=== PATIENT | female | born 1985 | race Caucasian/White ===

== ENCOUNTER 2018-05-19 23:00 | Emergency (ER) | payer OTHER, SELFPAY ==
[~2018-05-19] VITALS: Ht 160 cm; Wt 63.6 kg
[~2018-05-19 23:00] MED LIST: NOCURR
[2018-05-20 03:38] VITALS: BP 115/69
== END 2018-05-20 06:25 | disposition home or self-care (01) ==
LOC: EMS 23:01
DX: M25.571 Pain in right ankle and joints of right foot (principal); F20.9 Schizophrenia, unspecified; F17.200 Nicotine dependence, unspecified, uncomplicated; W19.XXXA Unspecified fall, initial encounter; Y93.89 Activity, other specified; Y92.89 Other specified places as the place of occurrence of the external cause; Y99.8 Other external cause status

== ENCOUNTER 2018-05-20 21:43 | Emergency (ER) | payer OTHER ==
[~2018-05-20] VITALS: Ht 160 cm; Wt 63.6 kg
[2018-05-20 23:15] VITALS: BP 100/64
[2018-05-20 23:50] LABS: AMPHET/METH SCREEN,URINE NEGATIVE (NEGATIVE); BARBITURATE SCREEN, URINE NEGATIVE (NEGATIVE); BENZODIAZEPINES SCREEN,URINE NEGATIVE (NEGATIVE); CANNABINOID SCREEN,URINE NEGATIVE (NEGATIVE); COCAINE SCREEN,URINE NEGATIVE (NEGATIVE); METHADONE SCREEN, URINE NEGATIVE (NEGATIVE); OPIATE SCREEN,URINE NEGATIVE (NEGATIVE); PHENCYCLIDINE SCREEN,URINE NEGATIVE (NEGATIVE)
[2018-05-20 23:51] LABS: EOSINOPHILS % (AUTO) 1.2 % (1.0-6.0); HEMATOCRIT 34.1 % (36-46); HEMOGLOBIN 11.4 g/dL (12.0-16.0); LYMPHOCYTES # (AUTO) 2.4 K/uL (1.0-4.8); LYMPHOCYTES % (AUTO) 31.3 % (22.0-44.0); MEAN CORPUSCULAR HEMOGLOBIN 29.9 pg (26.0-34.0); MEAN CORPUSCULAR HGB CONC 33.3 G/dL (31.0-37.0); MEAN CORPUSCULAR VOLUME 90 fL (80-100); MONOCYTES # (AUTO) 0.6 K/uL (0.1-1.0); MONOCYTES % (AUTO) 8.2 % (2.0-9.0); NEUTROPHILS # (AUTO) 4.5 K/uL (1.8-7.7); NEUTROPHILS % (AUTO) 58.3 % (40.0-70.0); PLATELET COUNT (AUTO) 176 K/uL (150-450); RED CELL DISTRIBUTION WIDTH 15.3 % (11.5-14.5)
[2018-05-21 00:02] LABS: ANION GAP 11 mmol/L (8-16); CALCIUM, TOTAL 8.4 mg/dL (8.8-10.5); CARBON DIOXIDE 25 mmol/L (22-29); CHLORIDE 105 mmol/L (98-107); GLOMERULAR FILTR. RATE CALC > 60 mL/min (>60); GLUCOSE,RANDOM 107 mg/dL (70-110); POTASSIUM 3.8 mmol/L (3.5-5.1); SODIUM SERUM 141 mmol/L (136-145); UREA NITROGEN, BLOOD 9 mg/dL (7-18)
[2018-05-21 00:09] LABS: ALANINE AMINOTRANSFERASE 44 U/L (12-78); ALBUMIN 3.7 g/dL (3.4-5.0); ALKALINE PHOSPHATASE 106 U/L (46-116); ASPARTATE AMINOTRANSFERASE 43 U/L (15-37); BILIRUBIN,TOTAL 0.2 mg/dL (0.1-1.0); TOTAL PROTEIN, SERUM 8.1 g/dL (6.4-8.2)
== END 2018-05-21 06:25 | disposition home or self-care (01) ==
LOC: EMS 21:44
DX: F20.9 Schizophrenia, unspecified (principal); F10.129 Alcohol abuse with intoxication, unspecified; Y90.8 Blood alcohol level of 240 mg/100 ml or more
CPT/HCPCS: 36415; 80053; 80307; 85025; 99285; G0480

== ENCOUNTER 2018-06-12 19:22 | Inpatient (IN) | payer MEDICAID, OTHER ==
[~2018-06-12] VITALS: Ht 160 cm; Wt 78.5 kg
[~2018-06-12 19:22] MED LIST changes: +ALBU8HFA IH; +ASPI-891 PO; +BENZ1LOZ68 PO; +CLON-570 PO; +DSS100 PO; +IBUP-2071 PO; +LOPE2 PO; +LORA2TAB2 PO; +MULT-1239 PO; +OLAN5TAB2 PO; +OMEG-12 PO; +QUET100T PO; +SERT100T12 PO; +VITAD1000 PO; +ZOLP10TA7 PO
[2018-06-13] VITALS (13 sets, daily range): BP systolic 104–136; BP diastolic 73–89
[2018-06-13] MEDS ORDERED: ZOLPIDEM TARTRATE 10 MG TABLET PO PRN (01:45)
[2018-06-13] MEDS ORDERED: LOPERAMIDE HCL 2 MG CAPSULE PO PRN (05:45)
[2018-06-13] MEDS ORDERED: PETROLATUM,WHITE 71 GM JELLY TP PRN (05:45)
[2018-06-13] MEDS ORDERED: ONDANSETRON HCL 4 MG TABLET PO PRN (05:45)
[2018-06-13] MEDS ORDERED: MAGNESIUM HYDROXIDE SUSPENSION 30 ML UDCUP PO PRN (05:45)
[2018-06-13] MEDS ORDERED: CloNIDine HCL 0.1 MG TABLET PO PRN (05:45)
[2018-06-13] MEDS ORDERED: MAG HYDROX/AL HYDROX/SIMETH ES 30 ML SUSPENSION UDCUP PO PRN (05:45)
[2018-06-13] MEDS ORDERED: GuaiFENesin/D-METHORPHAN [SUGAR-FREE] 200-20MG/10 ML SYRUP UDCUP PO PRN (05:45)
[2018-06-13] MEDS ORDERED: IBUPROFEN 400 MG TABLET PO PRN (05:45)
[2018-06-13] MEDS ORDERED: ALBUTEROL SULFATE HFA 90 MCG/PUFF 8 GM INHALER IH PRN (05:45)
[2018-06-13] MEDS ORDERED: DOCUSATE SODIUM 100 MG CAPSULE PO PRN (05:45)
[2018-06-13] MEDS ORDERED: ACETAMINOPHEN 325 MG TABLET PO PRN (05:45)
[2018-06-13] MEDS ORDERED: NICOTINE 14 MG/24 HOUR PATCH TD PRN (05:45)
[2018-06-13] MEDS: LORazepam 2 MG TABLET PO PRN ×2 (12:20→16:43)
[2018-06-13] MEDS: QUEtiapine FUMARATE 100 MG TABLET PO PRN (16:43)
[2018-06-13] MEDS: OLANZapine 5 MG TABLET PO SCH (16:44)
[2018-06-14] VITALS (9 sets, daily range): BP systolic 94–126; BP diastolic 61–82
[2018-06-14 07:47] LABS: BASOPHILS % (AUTO) 0.3 % (0.0-2.0); EOSINOPHILS % (AUTO) 1.1 % (1.0-6.0); HEMATOCRIT 34.8 % (36-46); HEMOGLOBIN 11.5 g/dL (12.0-16.0); LYMPHOCYTES # (AUTO) 1.4 K/uL (1.0-4.8); MEAN CORPUSCULAR HEMOGLOBIN 30.1 pg (26.0-34.0); MEAN CORPUSCULAR VOLUME 91 fL (80-100); MONOCYTES # (AUTO) 0.5 K/uL (0.1-1.0); MONOCYTES % (AUTO) 8.2 % (2.0-9.0); NEUTROPHILS # (AUTO) 3.9 K/uL (1.8-7.7); NEUTROPHILS % (AUTO) 66.4 % (40.0-70.0); PLATELET COUNT (AUTO) 129 K/uL (150-450); RED BLOOD CELL COUNT(AUTO) 3.81 MIL/uL (4.00-5.20); RED CELL DISTRIBUTION WIDTH 17.4 % (11.5-14.5)
[2018-06-14 08:01] LABS: HEMOGLOBIN A1C 5.2 % (4.5-6.2)
[2018-06-14 08:48] LABS: ALANINE AMINOTRANSFERASE 16 U/L (12-78); ALBUMIN 3.5 g/dL (3.4-5.0); ALKALINE PHOSPHATASE 70 U/L (46-116); ANION GAP 11 mmol/L (8-16); ASPARTATE AMINOTRANSFERASE 19 U/L (15-37); BILIRUBIN,TOTAL 0.5 mg/dL (0.1-1.0); CALCIUM, TOTAL 9.2 mg/dL (8.8-10.5); CARBON DIOXIDE 25 mmol/L (22-29); CHLORIDE 104 mmol/L (98-107); CHOL/HDL RATIO 2.3 (3.9-5.7); CHOLESTEROL 149 mg/dL (131-200); GLOMERULAR FILTR. RATE CALC > 60 mL/min (>60); GLUCOSE,RANDOM 93 mg/dL (70-110); HCG,QUANTITATIVE < 1 mIU/mL (0-6); HDL CHOLESTEROL 64 mg/dL (40-60); LDL CHOL (CALC.) 74 mg/dL (0-130); SODIUM SERUM 140 mmol/L (136-145); THYROID STIMULATING HORMONE 1.16 uIU/mL (0.36-3.74); TOTAL PROTEIN, SERUM 7.2 g/dL (6.4-8.2); TRIGLYCERIDES 57 mg/dL (15-150); UREA NITROGEN, BLOOD 11 mg/dL (7-18)
[2018-06-14] MEDS: SERTRALINE HCL 100 MG TABLET PO SCH (09:15)
[2018-06-14] MEDS: OLANZapine 5 MG TABLET PO SCH ×2 (09:15→16:32)
[2018-06-14] MEDS: LORazepam 2 MG TABLET PO PRN (16:32)
[2018-06-14] MEDS: QUEtiapine FUMARATE 100 MG TABLET PO PRN (16:32)
[2018-06-15 03:14] VITALS: BP 113/67
[2018-06-15 03:20] VITALS: BP 113/67
[2018-06-15 07:04] VITALS: BP 109/65
[2018-06-15] MEDS: OLANZapine 5 MG TABLET PO SCH (08:56)
[2018-06-15] MEDS: SERTRALINE HCL 100 MG TABLET PO SCH (08:56)
[2018-06-15 11:25] VITALS: BP 119/74
[2018-06-15 11:26] VITALS: BP 119/74
== END 2018-06-15 13:30 | disposition home or self-care (01) | DRG 750 ==
LOC: B3A 06-13 01:30
PROVIDERS: ADMIT Psychiatry & Neurology Psychiatry; ATTEND Psychiatry & Neurology Psychiatry
DX: F25.9 Schizoaffective disorder, unspecified (principal); R45.851 Suicidal ideations; Z59.0 Homelessness; F10.10 Alcohol abuse, uncomplicated; D64.9 Anemia, unspecified; F17.200 Nicotine dependence, unspecified, uncomplicated; F32.9 Major depressive disorder, single episode, unspecified; G47.00 Insomnia, unspecified; I10 Essential (primary) hypertension; Y90.8 Blood alcohol level of 240 mg/100 ml or more; Z86.73 Personal history of transient ischemic attack (TIA), and cerebral infarction without residual deficits; Z81.8 Family history of other mental and behavioral disorders
CPT/HCPCS: 83036; 84443; 93970

== ENCOUNTER 2018-07-03 09:24 | Inpatient (IN) | payer MEDICAID, OTHER ==
[~2018-07-03] VITALS: Ht 160 cm; Wt 80.7 kg
[~2018-07-03 09:24] MED LIST changes: -ALBU8HFA IH; -ASPI-891 PO; -BENZ1LOZ68 PO; -CLON-570 PO; -DSS100 PO; -IBUP-2071 PO; -LOPE2 PO; -LORA2TAB2 PO; -MULT-1239 PO; -NOCURR; -OMEG-12 PO; -QUET100T PO; -VITAD1000 PO; -ZOLP10TA7 PO
[2018-07-03] MEDS ORDERED: HALOPERIDOL 5 MG TABLET PO PRN (11:00)
[2018-07-03 12:00] LABS: BASOPHILS % (AUTO) 0.6 % (0.0-2.0); EOSINOPHILS % (AUTO) 0.9 % (1.0-6.0); HEMATOCRIT 36.8 % (36-46); LYMPHOCYTES # (AUTO) 1.8 K/uL (1.0-4.8); LYMPHOCYTES % (AUTO) 42.1 % (22.0-44.0); MEAN CORPUSCULAR HEMOGLOBIN 30.2 pg (26.0-34.0); MEAN CORPUSCULAR HGB CONC 32.7 G/dL (31.0-37.0); MEAN CORPUSCULAR VOLUME 92 fL (80-100); MONOCYTES # (AUTO) 0.3 K/uL (0.1-1.0); MONOCYTES % (AUTO) 6.4 % (2.0-9.0); NEUTROPHILS # (AUTO) 2.2 K/uL (1.8-7.7); PLATELET COUNT (AUTO) 153 K/uL (150-450); RED BLOOD CELL COUNT(AUTO) 3.98 MIL/uL (4.00-5.20); RED CELL DISTRIBUTION WIDTH 19.7 % (11.5-14.5)
[2018-07-03 12:14] LABS: ANION GAP 13 mmol/L (8-16); CALCIUM, TOTAL 8.4 mg/dL (8.8-10.5); CARBON DIOXIDE 23 mmol/L (22-29); CHLORIDE 106 mmol/L (98-107); CREATININE 0.46 mg/dL (0.60-1.30); GLOMERULAR FILTR. RATE CALC > 60 mL/min (>60); GLUCOSE,RANDOM 107 mg/dL (70-110); POTASSIUM 4.1 mmol/L (3.5-5.1); SODIUM SERUM 142 mmol/L (136-145); UREA NITROGEN, BLOOD 9 mg/dL (7-18)
[2018-07-03 12:26] LABS: ALANINE AMINOTRANSFERASE 20 U/L (12-78); ALBUMIN 3.6 g/dL (3.4-5.0); ALKALINE PHOSPHATASE 102 U/L (46-116); ASPARTATE AMINOTRANSFERASE 27 U/L (15-37); BILIRUBIN,TOTAL 0.1 mg/dL (0.1-1.0); HCG,QUANTITATIVE < 1 mIU/mL (0-6); TOTAL PROTEIN, SERUM 7.5 g/dL (6.4-8.2)
[2018-07-03 12:57] LABS: AMPHET/METH SCREEN,URINE NEGATIVE (NEGATIVE); BARBITURATE SCREEN, URINE NEGATIVE (NEGATIVE); BENZODIAZEPINES SCREEN,URINE NEGATIVE (NEGATIVE); CANNABINOID SCREEN,URINE NEGATIVE (NEGATIVE); COCAINE SCREEN,URINE NEGATIVE (NEGATIVE); METHADONE SCREEN, URINE NEGATIVE (NEGATIVE); OPIATE SCREEN,URINE NEGATIVE (NEGATIVE)
[2018-07-03 12:58] LABS: PHENCYCLIDINE SCREEN,URINE NEGATIVE (NEGATIVE)
[2018-07-03 13:16] LABS: APPEARANCE,URINE CLEAR (CLEAR); BILIRUBIN,URINE NEGATIVE (NEGATIVE); GLUCOSE, URINE (UA) NEGATIVE (NEGATIVE); KETONES,URINE NEGATIVE (NEGATIVE); LEUKOCYTE ESTERASE ,URINE TRACE (NEGATIVE); NITRATE,URINE NEGATIVE (NEGATIVE); OCCULT BLOOD,URINE NEGATIVE (NEGATIVE); PROTEIN,URINE NEGATIVE (NEGATIVE); UROBILINOGEN,URINE 0.2 mg/dL (<=1.0)
[2018-07-03 13:32] LABS: BACTERIA,URINE Few /HPF (None Seen); RBC,URINE None Seen /HPF (0-2); WBC,URINE 0-2 /HPF (0-5)
[2018-07-03 13:33] LABS: SQUAMOUS EPITHELIAL CELL,UR Few /LPF (None Seen)
[2018-07-03 19:30] VITALS: BP 101/65
[2018-07-03] MEDS ORDERED: ALBUTEROL SULFATE HFA 90 MCG/PUFF 8 GM INHALER IH PRN (20:45)
[2018-07-03] MEDS ORDERED: DOCUSATE SODIUM 100 MG CAPSULE PO PRN (20:45)
[2018-07-03] MEDS ORDERED: MAG HYDROX/AL HYDROX/SIMETH ES 30 ML SUSPENSION UDCUP PO PRN (20:45)
[2018-07-03] MEDS ORDERED: LOPERAMIDE HCL 2 MG CAPSULE PO PRN (20:45)
[2018-07-03] MEDS ORDERED: ACETAMINOPHEN 325 MG TABLET PO PRN (20:45)
[2018-07-03] MEDS ORDERED: ONDANSETRON HCL 4 MG TABLET PO PRN (20:45)
[2018-07-03] MEDS ORDERED: CloNIDine HCL 0.1 MG TABLET PO PRN (20:45)
[2018-07-03] MEDS ORDERED: MAGNESIUM HYDROXIDE SUSPENSION 30 ML UDCUP PO PRN (20:45)
[2018-07-03] MEDS ORDERED: PETROLATUM,WHITE 28 GM JELLY TP PRN (20:45)
[2018-07-03] MEDS ORDERED: GuaiFENesin/D-METHORPHAN [SUGAR-FREE] 200-20MG/10 ML SYRUP UDCUP PO PRN (20:45)
[2018-07-03] MEDS ORDERED: NICOTINE 14 MG/24 HOUR PATCH TD PRN (20:45)
[2018-07-03 23:00] VITALS: BP 100/68
[2018-07-04] VITALS (10 sets, daily range): BP systolic 100–124; BP diastolic 66–87
[2018-07-04 08:23] LABS: BASOPHILS % (AUTO) 0.3 % (0.0-2.0); EOSINOPHILS % (AUTO) 0.9 % (1.0-6.0); HEMATOCRIT 36.6 % (36-46); HEMOGLOBIN 11.9 g/dL (12.0-16.0); LYMPHOCYTES # (AUTO) 1.3 K/uL (1.0-4.8); LYMPHOCYTES % (AUTO) 27.6 % (22.0-44.0); MEAN CORPUSCULAR HEMOGLOBIN 30.4 pg (26.0-34.0); MEAN CORPUSCULAR HGB CONC 32.6 G/dL (31.0-37.0); MEAN CORPUSCULAR VOLUME 93 fL (80-100); MONOCYTES # (AUTO) 0.5 K/uL (0.1-1.0); MONOCYTES % (AUTO) 9.6 % (2.0-9.0); NEUTROPHILS % (AUTO) 61.6 % (40.0-70.0); PLATELET COUNT (AUTO) 137 K/uL (150-450); RED BLOOD CELL COUNT(AUTO) 3.93 MIL/uL (4.00-5.20); RED CELL DISTRIBUTION WIDTH 19.4 % (11.5-14.5)
[2018-07-04] MEDS: LORazepam 2 MG TABLET PO PRN (08:28)
[2018-07-04 08:56] LABS: HEMOGLOBIN A1C 5.3 % (4.5-6.2)
[2018-07-04 09:02] LABS: ALANINE AMINOTRANSFERASE 17 U/L (12-78); ALBUMIN 3.5 g/dL (3.4-5.0); ALKALINE PHOSPHATASE 88 U/L (46-116); ANION GAP 8 mmol/L (8-16); ASPARTATE AMINOTRANSFERASE 21 U/L (15-37); BILIRUBIN,TOTAL 0.6 mg/dL (0.1-1.0); CALCIUM, TOTAL 9.2 mg/dL (8.8-10.5); CARBON DIOXIDE 27 mmol/L (22-29); CHLORIDE 102 mmol/L (98-107); CHOL/HDL RATIO 2.6 (3.9-5.7); CHOLESTEROL 180 mg/dL (131-200); CREATININE 0.49 mg/dL (0.60-1.30); GLOMERULAR FILTR. RATE CALC > 60 mL/min (>60); GLUCOSE,RANDOM 91 mg/dL (70-110); HDL CHOLESTEROL 68 mg/dL (40-60); LDL CHOL (CALC.) 89 mg/dL (0-130); POTASSIUM 3.9 mmol/L (3.5-5.1); SODIUM SERUM 137 mmol/L (136-145); THYROID STIMULATING HORMONE 1.51 uIU/mL (0.36-3.74); TOTAL PROTEIN, SERUM 7.2 g/dL (6.4-8.2); TRIGLYCERIDES 114 mg/dL (15-150); UREA NITROGEN, BLOOD 11 mg/dL (7-18)
[2018-07-04] MEDS: SERTRALINE HCL 100 MG TABLET PO SCH (13:39)
[2018-07-04] MEDS: FERROUS SULFATE 325 MG EC TABLET PO SCH (16:59)
[2018-07-04] MEDS: OLANZapine 5 MG TABLET PO SCH (16:59)
[2018-07-05 03:00] VITALS: BP 113/73
[2018-07-05] MEDS: FERROUS SULFATE 325 MG EC TABLET PO SCH ×2 (07:12→17:28)
[2018-07-05 08:36] VITALS: BP 118/90
[2018-07-05] MEDS: SERTRALINE HCL 100 MG TABLET PO SCH (09:22)
[2018-07-05] MEDS: OLANZapine 5 MG TABLET PO SCH ×2 (09:22→17:28)
[2018-07-05] MEDS: LORazepam 2 MG TABLET PO PRN (09:23)
[2018-07-05 16:47] VITALS: BP 121/70
[2018-07-06 01:08] VITALS: BP 112/77
[2018-07-06] MEDS: FERROUS SULFATE 325 MG EC TABLET PO SCH ×2 (07:02→17:09)
[2018-07-06 08:00] VITALS: BP 107/78
[2018-07-06] MEDS: OLANZapine 5 MG TABLET PO SCH ×2 (09:15→17:09)
[2018-07-06] MEDS: SERTRALINE HCL 100 MG TABLET PO SCH (09:15)
[2018-07-06] MEDS: LORazepam 2 MG TABLET PO PRN (09:15)
[2018-07-06 16:14] VITALS: BP 105/64
[2018-07-06] MEDS: ZOLPIDEM TARTRATE 10 MG TABLET PO PRN (20:44)
[2018-07-07 01:59] VITALS: BP 118/62
[2018-07-07] MEDS: FERROUS SULFATE 325 MG EC TABLET PO SCH ×2 (06:59→16:51)
[2018-07-07 08:25] VITALS: BP 118/77
[2018-07-07] MEDS: SERTRALINE HCL 100 MG TABLET PO SCH (08:53)
[2018-07-07] MEDS: OLANZapine 5 MG TABLET PO SCH ×2 (08:53→16:51)
[2018-07-07 17:15] VITALS: BP 118/91
[2018-07-08 00:15] VITALS: BP 120/81
[2018-07-08] MEDS: FERROUS SULFATE 325 MG EC TABLET PO SCH ×2 (06:57→16:37)
[2018-07-08 08:39] VITALS: BP 101/64
[2018-07-08] MEDS: SERTRALINE HCL 100 MG TABLET PO SCH (09:13)
[2018-07-08] MEDS: OLANZapine 5 MG TABLET PO SCH (09:13)
[2018-07-08 16:20] VITALS: BP 109/84
[2018-07-08] MEDS: OLANZapine 10 MG TABLET PO SCH (16:37)
[2018-07-09 00:32] VITALS: BP 112/70
[2018-07-09] MEDS: FERROUS SULFATE 325 MG EC TABLET PO SCH ×2 (06:37→16:49)
[2018-07-09 08:29] VITALS: BP 115/79
[2018-07-09] MEDS: OLANZapine 10 MG TABLET PO SCH ×2 (09:00→16:49)
[2018-07-09] MEDS: SERTRALINE HCL 100 MG TABLET PO SCH (09:01)
[2018-07-09 16:19] VITALS: BP 109/72
[2018-07-09] MEDS: LORazepam 2 MG TABLET PO PRN (21:32)
[2018-07-10 05:17] VITALS: BP 106/69
[2018-07-10] MEDS: FERROUS SULFATE 325 MG EC TABLET PO SCH ×2 (07:18→16:37)
[2018-07-10 08:21] VITALS: BP 102/71
[2018-07-10] MEDS: OLANZapine 10 MG TABLET PO SCH ×2 (08:48→16:37)
[2018-07-10] MEDS: SERTRALINE HCL 100 MG TABLET PO SCH (08:48)
[2018-07-10] MEDS: LORazepam 2 MG TABLET PO PRN (08:48)
[2018-07-10 16:27] VITALS: BP 103/70
[2018-07-11 00:24] VITALS: BP 100/73
[2018-07-11] MEDS: FERROUS SULFATE 325 MG EC TABLET PO SCH ×2 (06:54→17:24)
[2018-07-11 08:16] VITALS: BP 103/79
[2018-07-11] MEDS: SERTRALINE HCL 100 MG TABLET PO SCH (09:00)
[2018-07-11] MEDS: OLANZapine 10 MG TABLET PO SCH ×2 (09:00→17:24)
[2018-07-11 16:36] VITALS: BP 103/71
[2018-07-11 18:44] VITALS: BP 103/71
[2018-07-11] MEDS: IBUPROFEN 400 MG TABLET PO PRN (18:48)
[2018-07-12 05:42] VITALS: BP 109/65
[2018-07-12 06:25] VITALS: BP 120/81
[2018-07-12] MEDS: IBUPROFEN 400 MG TABLET PO PRN (06:30)
[2018-07-12] MEDS: FERROUS SULFATE 325 MG EC TABLET PO SCH ×2 (07:05→16:23)
[2018-07-12 08:27] VITALS: BP 119/84
[2018-07-12] MEDS: OLANZapine 10 MG TABLET PO SCH ×2 (08:35→16:23)
[2018-07-12] MEDS: SERTRALINE HCL 100 MG TABLET PO SCH (08:35)
[2018-07-12] MEDS: LORazepam 2 MG TABLET PO PRN (09:05)
[2018-07-12 19:40] VITALS: BP 108/73
[2018-07-13] MEDS: ZOLPIDEM TARTRATE 10 MG TABLET PO PRN (00:51)
[2018-07-13 00:55] VITALS: BP 110/68
[2018-07-13] MEDS: FERROUS SULFATE 325 MG EC TABLET PO SCH ×2 (07:09→16:20)
[2018-07-13 08:42] VITALS: BP 100/66
[2018-07-13] MEDS: SERTRALINE HCL 100 MG TABLET PO SCH (09:47)
[2018-07-13] MEDS: OLANZapine 10 MG TABLET PO SCH ×2 (09:47→16:20)
[2018-07-13] MEDS: IBUPROFEN 400 MG TABLET PO PRN (14:43)
[2018-07-13 16:35] VITALS: BP 106/77
[2018-07-13] MEDS: LORazepam 2 MG TABLET PO PRN (17:45)
[2018-07-14 06:12] VITALS: BP 111/69
[2018-07-14] MEDS: FERROUS SULFATE 325 MG EC TABLET PO SCH (07:09)
[2018-07-14 08:33] VITALS: BP 126/78
[2018-07-14] MEDS: SERTRALINE HCL 100 MG TABLET PO SCH (09:12)
[2018-07-14] MEDS: OLANZapine 10 MG TABLET PO SCH (09:12)
[2018-07-14] MEDS ORDERED: FERR-89 PO (09:46)
[2018-07-14] MEDS ORDERED: OLAN10TA3 PO (09:46)
== END 2018-07-14 13:25 | disposition home or self-care (01) | DRG 750 ==
LOC: EMS 09:25 → B2S 15:23
PROVIDERS: ADMIT Psychiatry & Neurology Psychiatry; ATTEND Psychiatry & Neurology Psychiatry
DX: F25.0 Schizoaffective disorder, bipolar type (principal); R45.851 Suicidal ideations; Z59.0 Homelessness; F25.1 Schizoaffective disorder, depressive type; F41.9 Anxiety disorder, unspecified; I10 Essential (primary) hypertension; F17.210 Nicotine dependence, cigarettes, uncomplicated; D64.9 Anemia, unspecified; F10.10 Alcohol abuse, uncomplicated; F12.90 Cannabis use, unspecified, uncomplicated; F32.9 Major depressive disorder, single episode, unspecified; Z91.5 Personal history of self-harm; Z71.6 Tobacco abuse counseling; Z71.41 Alcohol abuse counseling and surveillance of alcoholic
CPT/HCPCS: 83036; 84443; 87081; G0480

== ENCOUNTER 2018-08-14 13:49 | Inpatient (IN) | payer MEDICAID, OTHER ==
[~2018-08-14] VITALS: Ht 160 cm; Wt 85.7 kg
[~2018-08-14 13:49] MED LIST changes: +FERR-89 PO; +OLAN10TA3 PO; -OLAN5TAB2 PO
[2018-08-14 15:35] LABS: AMPHET/METH SCREEN,URINE NEGATIVE (NEGATIVE); BARBITURATE SCREEN, URINE NEGATIVE (NEGATIVE); BENZODIAZEPINES SCREEN,URINE POSITIVE (NEGATIVE); CANNABINOID SCREEN,URINE NEGATIVE (NEGATIVE); COCAINE SCREEN,URINE NEGATIVE (NEGATIVE); METHADONE SCREEN, URINE NEGATIVE (NEGATIVE); OPIATE SCREEN,URINE NEGATIVE (NEGATIVE)
[2018-08-14 15:41] LABS: PHENCYCLIDINE SCREEN,URINE NEGATIVE (NEGATIVE)
[2018-08-14 16:31] LABS: BASOPHILS % (AUTO) 0.5 % (0.0-2.0); EOSINOPHILS % (AUTO) 0.7 % (1.0-6.0); HEMATOCRIT 35.9 % (36-46); MEAN CORPUSCULAR HEMOGLOBIN 30.7 pg (26.0-34.0); MEAN CORPUSCULAR HGB CONC 33.3 G/dL (31.0-37.0); MEAN CORPUSCULAR VOLUME 92 fL (80-100); MONOCYTES # (AUTO) 0.4 K/uL (0.1-1.0); MONOCYTES % (AUTO) 6.9 % (2.0-9.0); NEUTROPHILS # (AUTO) 2.9 K/uL (1.8-7.7); NEUTROPHILS % (AUTO) 53.9 % (40.0-70.0); PLATELET COUNT (AUTO) 106 K/uL (150-450)
[2018-08-14 16:41] LABS: ANION GAP 10 mmol/L (8-16); CALCIUM, TOTAL 8.2 mg/dL (8.8-10.5); CARBON DIOXIDE 24 mmol/L (22-29); CHLORIDE 107 mmol/L (98-107); CREATININE 0.49 mg/dL (0.60-1.30); GLOMERULAR FILTR. RATE CALC > 60 mL/min (>60); GLUCOSE,RANDOM 104 mg/dL (70-110); POTASSIUM 3.9 mmol/L (3.5-5.1); SODIUM SERUM 141 mmol/L (136-145); UREA NITROGEN, BLOOD 6 mg/dL (7-18)
[2018-08-14 16:54] LABS: ALANINE AMINOTRANSFERASE 32 U/L (12-78); ALBUMIN 3.4 g/dL (3.4-5.0); ALKALINE PHOSPHATASE 97 U/L (46-116); ASPARTATE AMINOTRANSFERASE 34 U/L (15-37); BILIRUBIN,TOTAL 0.2 mg/dL (0.1-1.0); HCG,QUANTITATIVE < 1 mIU/mL (0-6); TOTAL PROTEIN, SERUM 7.1 g/dL (6.4-8.2)
[2018-08-14] MEDS ORDERED: HALOPERIDOL 5 MG TABLET PO PRN (18:00)
[2018-08-14 21:57] VITALS: BP 137/100
[2018-08-14 22:01] VITALS: BP 137/100
[2018-08-14] MEDS: ZOLPIDEM TARTRATE 10 MG TABLET PO PRN (22:08)
[2018-08-14] MEDS: LORazepam 2 MG TABLET PO PRN (22:14)
[2018-08-14] MEDS ORDERED: GuaiFENesin/D-METHORPHAN [SUGAR-FREE] 200-20MG/10 ML SYRUP UDCUP PO PRN (22:15)
[2018-08-14] MEDS ORDERED: MAGNESIUM HYDROXIDE SUSPENSION 30 ML UDCUP PO PRN (22:15)
[2018-08-14] MEDS ORDERED: MAG HYDROX/AL HYDROX/SIMETH ES 30 ML SUSPENSION UDCUP PO PRN (22:15)
[2018-08-14] MEDS ORDERED: CloNIDine HCL 0.1 MG TABLET PO PRN (22:15)
[2018-08-14] MEDS ORDERED: DOCUSATE SODIUM 100 MG CAPSULE PO PRN (22:15)
[2018-08-14] MEDS ORDERED: PETROLATUM,WHITE 28 GM JELLY TP PRN (22:15)
[2018-08-14] MEDS ORDERED: IBUPROFEN 400 MG TABLET PO PRN (22:15)
[2018-08-14] MEDS ORDERED: NICOTINE 14 MG/24 HOUR PATCH TD PRN (22:15)
[2018-08-14] MEDS ORDERED: ONDANSETRON HCL 4 MG TABLET PO PRN (22:15)
[2018-08-14] MEDS ORDERED: ACETAMINOPHEN 325 MG TABLET PO PRN (22:15)
[2018-08-14] MEDS ORDERED: ALBUTEROL SULFATE HFA 90 MCG/PUFF 8 GM INHALER IH PRN (22:15)
[2018-08-14] MEDS ORDERED: LOPERAMIDE HCL 2 MG CAPSULE PO PRN (22:15)
[2018-08-14 23:00] VITALS: BP 106/75
[2018-08-14 23:12] VITALS: BP 106/75
[2018-08-15] VITALS (11 sets, daily range): BP systolic 101–129; BP diastolic 70–85
[2018-08-15] MEDS: FERROUS SULFATE 325 MG EC TABLET PO SCH ×2 (06:47→16:38)
[2018-08-15] MEDS: BACITRACIN 28.4 GM OINTMENT TP SCH ×2 (08:25→16:05)
[2018-08-15 08:35] LABS: HEMOGLOBIN A1C 5.8 % (4.5-6.2)
[2018-08-15 09:03] LABS: THYROID STIMULATING HORMONE 1.67 uIU/mL (0.36-3.74)
[2018-08-15] MEDS: OLANZapine 10 MG TABLET PO SCH (16:05)
[2018-08-16 02:15] VITALS: BP 108/68
[2018-08-16] MEDS: FERROUS SULFATE 325 MG EC TABLET PO SCH ×2 (06:37→16:30)
[2018-08-16 06:50] VITALS: BP 115/74
[2018-08-16 08:04] VITALS: BP 106/69
[2018-08-16] MEDS: OLANZapine 10 MG TABLET PO SCH ×2 (08:28→16:30)
[2018-08-16] MEDS: BACITRACIN 28.4 GM OINTMENT TP SCH ×2 (08:29→16:45)
[2018-08-16] MEDS: SERTRALINE HCL 100 MG TABLET PO SCH (08:29)
[2018-08-16 16:12] VITALS: BP 109/63
[2018-08-16] MEDS: ZOLPIDEM TARTRATE 10 MG TABLET PO PRN (21:05)
[2018-08-17 06:16] VITALS: BP 110/77
[2018-08-17 06:20] VITALS: BP 110/77
[2018-08-17] MEDS: FERROUS SULFATE 325 MG EC TABLET PO SCH ×2 (06:38→17:28)
[2018-08-17 08:18] VITALS: BP 111/71
[2018-08-17] MEDS: BACITRACIN 28.4 GM OINTMENT TP SCH ×2 (08:18→16:29)
[2018-08-17] MEDS: SERTRALINE HCL 100 MG TABLET PO SCH (08:18)
[2018-08-17] MEDS: OLANZapine 10 MG TABLET PO SCH ×2 (08:18→16:28)
[2018-08-17 16:00] VITALS: BP 104/76
[2018-08-17 16:14] VITALS: BP 104/76
[2018-08-17] MEDS: LORazepam 2 MG TABLET PO PRN (16:28)
[2018-08-18 06:06] VITALS: BP 108/75
[2018-08-18 06:07] VITALS: BP 108/75
[2018-08-18] MEDS: FERROUS SULFATE 325 MG EC TABLET PO SCH ×2 (06:38→17:05)
[2018-08-18] MEDS: OLANZapine 10 MG TABLET PO SCH ×2 (08:39→17:05)
[2018-08-18] MEDS: BACITRACIN 28.4 GM OINTMENT TP SCH ×2 (08:39→17:05)
[2018-08-18] MEDS: SERTRALINE HCL 100 MG TABLET PO SCH (08:39)
[2018-08-18 08:56] VITALS: BP 102/67
[2018-08-18 12:53] VITALS: BP 102/67
[2018-08-18 16:00] VITALS: BP 107/71
[2018-08-18] MEDS: LORazepam 2 MG TABLET PO PRN (17:05)
[2018-08-18] MEDS: ZOLPIDEM TARTRATE 10 MG TABLET PO PRN (21:00)
[2018-08-19 06:38] VITALS: BP 112/78
[2018-08-19 06:39] VITALS: BP 112/78
[2018-08-19] MEDS: FERROUS SULFATE 325 MG EC TABLET PO SCH ×2 (06:42→16:49)
[2018-08-19 08:37] VITALS: BP 96/60
[2018-08-19 08:38] VITALS: BP 96/60
[2018-08-19] MEDS: BACITRACIN 28.4 GM OINTMENT TP SCH ×2 (09:16→16:48)
[2018-08-19] MEDS: OLANZapine 10 MG TABLET PO SCH ×2 (09:16→16:49)
[2018-08-19] MEDS: SERTRALINE HCL 100 MG TABLET PO SCH (09:16)
[2018-08-19 16:08] VITALS: BP 120/76
[2018-08-19] MEDS: ZOLPIDEM TARTRATE 10 MG TABLET PO PRN (21:18)
[2018-08-20 05:21] VITALS: BP 118/69
[2018-08-20 05:23] VITALS: BP 118/69
[2018-08-20] MEDS: FERROUS SULFATE 325 MG EC TABLET PO SCH ×2 (06:28→17:34)
[2018-08-20 08:21] VITALS: BP 91/58
[2018-08-20] MEDS: BACITRACIN 28.4 GM OINTMENT TP SCH ×2 (09:06→17:35)
[2018-08-20] MEDS: OLANZapine 10 MG TABLET PO SCH ×2 (09:07→17:34)
[2018-08-20] MEDS: SERTRALINE HCL 100 MG TABLET PO SCH (09:07)
[2018-08-20 14:24] VITALS: BP 91/58
[2018-08-20 16:26] VITALS: BP 115/65
[2018-08-20] MEDS: ZOLPIDEM TARTRATE 10 MG TABLET PO PRN (20:43)
[2018-08-21] VITALS: BP 102/70
[2018-08-21] MEDS: FERROUS SULFATE 325 MG EC TABLET PO SCH ×2 (06:47→16:10)
[2018-08-21] MEDS: MULTIVITAMINS WITH MINERALS, THERAPEUTIC TABLET PO SCH (08:05)
[2018-08-21] MEDS: OMEGA-3/DHA/EPA/FISH OIL 1,000 MG CAPSULE PO SCH (08:05)
[2018-08-21] MEDS: FOLIC ACID 1 MG TABLET PO SCH (08:05)
[2018-08-21] MEDS: OLANZapine 10 MG TABLET PO SCH ×2 (08:05→16:10)
[2018-08-21] MEDS: THIAMINE HCL 100 MG TABLET PO SCH (08:05)
[2018-08-21] MEDS: SERTRALINE HCL 100 MG TABLET PO SCH (08:06)
[2018-08-21] MEDS: BACITRACIN 28.4 GM OINTMENT TP SCH ×2 (08:06→16:10)
[2018-08-21 08:30] VITALS: BP 100/67
[2018-08-21 09:29] VITALS: BP 100/67
[2018-08-21 16:26] VITALS: BP 135/86
[2018-08-21 16:30] VITALS: BP 135/86
[2018-08-22 05:56] VITALS: BP 97/67
[2018-08-22 06:03] VITALS: BP 97/67
[2018-08-22] MEDS: FERROUS SULFATE 325 MG EC TABLET PO SCH ×2 (06:56→17:04)
[2018-08-22 08:22] VITALS: BP 110/62
[2018-08-22 08:54] VITALS: BP 110/62
[2018-08-22] MEDS: OMEGA-3/DHA/EPA/FISH OIL 1,000 MG CAPSULE PO SCH (09:24)
[2018-08-22] MEDS: MULTIVITAMINS WITH MINERALS, THERAPEUTIC TABLET PO SCH (09:24)
[2018-08-22] MEDS: THIAMINE HCL 100 MG TABLET PO SCH (09:24)
[2018-08-22] MEDS: OLANZapine 10 MG TABLET PO SCH ×2 (09:24→17:05)
[2018-08-22] MEDS: SERTRALINE HCL 100 MG TABLET PO SCH (09:25)
[2018-08-22] MEDS: FOLIC ACID 1 MG TABLET PO SCH (09:25)
[2018-08-22] MEDS: BACITRACIN 28.4 GM OINTMENT TP SCH ×2 (10:00→17:05)
[2018-08-22 16:23] VITALS: BP 106/70
[2018-08-22] MEDS: ZOLPIDEM TARTRATE 10 MG TABLET PO PRN (20:58)
[2018-08-23 00:20] VITALS: BP 103/66
[2018-08-23] MEDS: FERROUS SULFATE 325 MG EC TABLET PO SCH ×2 (06:38→17:17)
[2018-08-23] MEDS: SERTRALINE HCL 100 MG TABLET PO SCH (08:20)
[2018-08-23] MEDS: MULTIVITAMINS WITH MINERALS, THERAPEUTIC TABLET PO SCH (08:20)
[2018-08-23] MEDS: THIAMINE HCL 100 MG TABLET PO SCH (08:20)
[2018-08-23] MEDS: FOLIC ACID 1 MG TABLET PO SCH (08:20)
[2018-08-23] MEDS: OLANZapine 10 MG TABLET PO SCH ×2 (08:20→17:17)
[2018-08-23] MEDS: OMEGA-3/DHA/EPA/FISH OIL 1,000 MG CAPSULE PO SCH (08:20)
[2018-08-23] MEDS: BACITRACIN 28.4 GM OINTMENT TP SCH ×2 (08:20→17:17)
[2018-08-23 08:53] VITALS: BP 100/68
[2018-08-23 16:30] VITALS: BP 102/68
[2018-08-23] MEDS: ZOLPIDEM TARTRATE 10 MG TABLET PO PRN (20:36)
[2018-08-24 06:12] VITALS: BP 102/76
[2018-08-24] MEDS: FERROUS SULFATE 325 MG EC TABLET PO SCH ×2 (06:38→16:53)
[2018-08-24] MEDS: OMEGA-3/DHA/EPA/FISH OIL 1,000 MG CAPSULE PO SCH (08:32)
[2018-08-24] MEDS: THIAMINE HCL 100 MG TABLET PO SCH (08:32)
[2018-08-24] MEDS: FOLIC ACID 1 MG TABLET PO SCH (08:32)
[2018-08-24] MEDS: BACITRACIN 28.4 GM OINTMENT TP SCH ×2 (08:32→16:52)
[2018-08-24] MEDS: MULTIVITAMINS WITH MINERALS, THERAPEUTIC TABLET PO SCH (08:32)
[2018-08-24] MEDS: OLANZapine 10 MG TABLET PO SCH ×2 (08:32→16:52)
[2018-08-24] MEDS: SERTRALINE HCL 100 MG TABLET PO SCH (08:33)
[2018-08-24] MEDS: CEPHALEXIN MONOHYDRATE 500 MG CAPSULE PO SCH ×3 (08:33→16:53)
[2018-08-24 08:38] VITALS: BP 100/62
[2018-08-24] MEDS: SULFAMETHOX/TRIMETH DS 800-160 MG/TABLET PO SCH ×2 (10:03→16:53)
[2018-08-24 16:09] VITALS: BP 103/63
[2018-08-24] MEDS: ZOLPIDEM TARTRATE 10 MG TABLET PO PRN (20:40)
[2018-08-25 02:52] VITALS: BP 105/62
[2018-08-25] MEDS: FERROUS SULFATE 325 MG EC TABLET PO SCH (06:33)
[2018-08-25 08:42] VITALS: BP 112/60
[2018-08-25] MEDS: MULTIVITAMINS WITH MINERALS, THERAPEUTIC TABLET PO SCH (09:07)
[2018-08-25] MEDS: OLANZapine 10 MG TABLET PO SCH (09:07)
[2018-08-25] MEDS: THIAMINE HCL 100 MG TABLET PO SCH (09:07)
[2018-08-25] MEDS: CEPHALEXIN MONOHYDRATE 500 MG CAPSULE PO SCH ×2 (09:07→13:40)
[2018-08-25] MEDS: SERTRALINE HCL 100 MG TABLET PO SCH (09:07)
[2018-08-25] MEDS: OMEGA-3/DHA/EPA/FISH OIL 1,000 MG CAPSULE PO SCH (09:07)
[2018-08-25] MEDS: SULFAMETHOX/TRIMETH DS 800-160 MG/TABLET PO SCH (09:07)
[2018-08-25] MEDS: FOLIC ACID 1 MG TABLET PO SCH (09:07)
[2018-08-25] MEDS ORDERED: FOLI1 PO (11:48)
[2018-08-25] MEDS ORDERED: BACTDSB PO (11:48)
[2018-08-25] MEDS ORDERED: THIA100T67 PO (11:48)
[2018-08-25] MEDS ORDERED: CEPH500 PO (11:48)
== END 2018-08-25 17:10 | disposition home or self-care (01) | DRG 750 ==
LOC: EMS 13:51 → B3A 19:37
PROVIDERS: ADMIT Psychiatry & Neurology Psychiatry; ATTEND Psychiatry & Neurology Psychiatry
DX: F25.1 Schizoaffective disorder, depressive type (principal); Z59.0 Homelessness; R45.851 Suicidal ideations; E78.5 Hyperlipidemia, unspecified; F10.10 Alcohol abuse, uncomplicated; F12.90 Cannabis use, unspecified, uncomplicated; F17.200 Nicotine dependence, unspecified, uncomplicated; F41.9 Anxiety disorder, unspecified; I10 Essential (primary) hypertension; Y90.7 Blood alcohol level of 200-239 mg/100 ml; Z91.5 Personal history of self-harm; Z71.6 Tobacco abuse counseling; Z71.41 Alcohol abuse counseling and surveillance of alcoholic
CPT/HCPCS: 83036; 84443; G0480

== ENCOUNTER 2018-10-01 17:05 | Emergency (ER) | payer OTHER ==
[~2018-10-01] VITALS: Ht 160 cm; Wt 81.5 kg
[~2018-10-01 17:05] MED LIST changes: +FOLI1 PO; +THIA100T67 PO
[2018-10-01 18:07] LABS: BASOPHILS % (AUTO) 1.1 % (0.0-2.0); EOSINOPHILS % (AUTO) 0.8 % (1.0-6.0); HEMATOCRIT 39.5 % (36-46); HEMOGLOBIN 13.2 g/dL (12.0-16.0); LYMPHOCYTES # (AUTO) 2.6 K/uL (1.0-4.8); LYMPHOCYTES % (AUTO) 44.8 % (22.0-44.0); MEAN CORPUSCULAR HEMOGLOBIN 32.5 pg (26.0-34.0); MEAN CORPUSCULAR HGB CONC 33.5 G/dL (31.0-37.0); MEAN CORPUSCULAR VOLUME 97 fL (80-100); MONOCYTES # (AUTO) 0.4 K/uL (0.1-1.0); MONOCYTES % (AUTO) 6.8 % (2.0-9.0); NEUTROPHILS # (AUTO) 2.7 K/uL (1.8-7.7); NEUTROPHILS % (AUTO) 46.5 % (40.0-70.0); PLATELET COUNT (AUTO) 197 K/uL (150-450); RED BLOOD CELL COUNT(AUTO) 4.08 MIL/uL (4.00-5.20); RED CELL DISTRIBUTION WIDTH 14.6 % (11.5-14.5)
[2018-10-01 18:19] LABS: ANION GAP 11 mmol/L (8-16); CALCIUM, TOTAL 8.5 mg/dL (8.8-10.5); CARBON DIOXIDE 25 mmol/L (22-29); CHLORIDE 104 mmol/L (98-107); CREATININE 0.52 mg/dL (0.60-1.30); GLOMERULAR FILTR. RATE CALC > 60 mL/min (>60); GLUCOSE,RANDOM 118 mg/dL (70-110); POTASSIUM 3.8 mmol/L (3.5-5.1); SODIUM SERUM 140 mmol/L (136-145); UREA NITROGEN, BLOOD 10 mg/dL (7-18)
[2018-10-01 18:25] LABS: ALANINE AMINOTRANSFERASE 29 U/L (12-78); ALBUMIN 3.7 g/dL (3.4-5.0); ALKALINE PHOSPHATASE 99 U/L (46-116); ASPARTATE AMINOTRANSFERASE 28 U/L (15-37); BILIRUBIN,TOTAL 0.1 mg/dL (0.1-1.0)
[2018-10-01 22:10] LABS: AMPHET/METH SCREEN,URINE NEGATIVE (NEGATIVE); BARBITURATE SCREEN, URINE NEGATIVE (NEGATIVE); BENZODIAZEPINES SCREEN,URINE POSITIVE (NEGATIVE); CANNABINOID SCREEN,URINE NEGATIVE (NEGATIVE); COCAINE SCREEN,URINE NEGATIVE (NEGATIVE); METHADONE SCREEN, URINE NEGATIVE (NEGATIVE); OPIATE SCREEN,URINE NEGATIVE (NEGATIVE); PHENCYCLIDINE SCREEN,URINE NEGATIVE (NEGATIVE)
[2018-10-02 02:30] VITALS: BP 118/62
== END 2018-10-02 05:45 | disposition home or self-care (01) ==
LOC: EMS 17:54
DX: F20.9 Schizophrenia, unspecified (principal); F10.129 Alcohol abuse with intoxication, unspecified; F31.9 Bipolar disorder, unspecified; I10 Essential (primary) hypertension; Z79.899 Other long term (current) drug therapy; Y90.8 Blood alcohol level of 240 mg/100 ml or more
CPT/HCPCS: 36415; 80053; 80307; 85025; 99284; G0480

== ENCOUNTER 2019-02-21 00:10 | Emergency (ER) | payer OTHER ==
[~2019-02-21] VITALS: Ht 160 cm; Wt 95.5 kg
[2019-02-21 02:59] VITALS: BP 119/77
== END 2019-02-21 04:42 | disposition left against medical advice (07) ==
LOC: EMS 00:12
DX: R76.11 Nonspecific reaction to tuberculin skin test without active tuberculosis (principal); F31.9 Bipolar disorder, unspecified; I10 Essential (primary) hypertension; F20.9 Schizophrenia, unspecified

== ENCOUNTER 2019-02-21 04:31 | Inpatient (IN) | payer MEDICAID, OTHER ==
[~2019-02-21] VITALS: Ht 160 cm; Wt 91.2 kg
[2019-02-21] VITALS (7 sets, daily range): BP systolic 128–142; BP diastolic 87–93
[2019-02-21 05:33] LABS: BASOPHILS % (AUTO) 0.7 % (0.0-2.0); EOSINOPHILS % (AUTO) 0.5 % (1.0-6.0); HEMATOCRIT 39.9 % (36-46); HEMOGLOBIN 13.5 g/dL (12.0-16.0); LYMPHOCYTES # (AUTO) 2.4 K/uL (1.0-4.8); LYMPHOCYTES % (AUTO) 36.4 % (22.0-44.0); MEAN CORPUSCULAR HEMOGLOBIN 31.7 pg (26.0-34.0); MEAN CORPUSCULAR HGB CONC 33.8 G/dL (31.0-37.0); MEAN CORPUSCULAR VOLUME 94 fL (80-100); MONOCYTES # (AUTO) 0.4 K/uL (0.1-1.0); NEUTROPHILS # (AUTO) 3.7 K/uL (1.8-7.7); NEUTROPHILS % (AUTO) 56.4 % (40.0-70.0); PLATELET COUNT (AUTO) 250 K/uL (150-450); RED BLOOD CELL COUNT(AUTO) 4.26 MIL/uL (4.00-5.20); RED CELL DISTRIBUTION WIDTH 14.7 % (11.5-14.5)
[2019-02-21 05:41] LABS: ANION GAP 7 mmol/L (8-16); CALCIUM, TOTAL 8.2 mg/dL (8.8-10.5); CARBON DIOXIDE 30 mmol/L (22-29); CHLORIDE 104 mmol/L (98-107); CREATININE 0.61 mg/dL (0.60-1.30); GLOMERULAR FILTR. RATE CALC > 60 mL/min (>60); GLUCOSE,RANDOM 117 mg/dL (70-110); POTASSIUM 3.9 mmol/L (3.5-5.1); SODIUM SERUM 141 mmol/L (136-145); UREA NITROGEN, BLOOD 9 mg/dL (7-18)
[2019-02-21 05:54] LABS: ALANINE AMINOTRANSFERASE 40 U/L (12-78); ALBUMIN 3.9 g/dL (3.4-5.0); ALKALINE PHOSPHATASE 92 U/L (46-116); ASPARTATE AMINOTRANSFERASE 26 U/L (15-37); BILIRUBIN,TOTAL 0.1 mg/dL (0.1-1.0); HCG,QUANTITATIVE < 1 mIU/mL (0-6); TOTAL PROTEIN, SERUM 8.5 g/dL (6.4-8.2)
[2019-02-21 05:57] LABS: AMPHET/METH SCREEN,URINE NEGATIVE (NEGATIVE); BARBITURATE SCREEN, URINE NEGATIVE (NEGATIVE); BENZODIAZEPINES SCREEN,URINE NEGATIVE (NEGATIVE); CANNABINOID SCREEN,URINE NEGATIVE (NEGATIVE); COCAINE SCREEN,URINE NEGATIVE (NEGATIVE); METHADONE SCREEN, URINE NEGATIVE (NEGATIVE); OPIATE SCREEN,URINE NEGATIVE (NEGATIVE)
[2019-02-21 05:58] LABS: PHENCYCLIDINE SCREEN,URINE NEGATIVE (NEGATIVE)
[2019-02-21] MEDS ORDERED: LORazepam 2 MG TABLET PO PRN (11:45)
[2019-02-21] MEDS ORDERED: HALOPERIDOL 5 MG TABLET PO PRN (11:45)
[2019-02-21] MEDS ORDERED: LOPERAMIDE HCL 2 MG CAPSULE PO PRN (15:30)
[2019-02-21] MEDS ORDERED: MAGNESIUM HYDROXIDE SUSPENSION 30 ML UDCUP PO PRN (15:30)
[2019-02-21] MEDS ORDERED: GuaiFENesin/D-METHORPHAN [SUGAR-FREE] 200-20MG/10 ML SYRUP UDCUP PO PRN (15:30)
[2019-02-21] MEDS ORDERED: ONDANSETRON HCL 4 MG TABLET PO PRN (15:30)
[2019-02-21] MEDS ORDERED: DOCUSATE SODIUM 100 MG CAPSULE PO PRN (15:30)
[2019-02-21] MEDS ORDERED: PETROLATUM,WHITE 28 GM JELLY TP PRN (15:30)
[2019-02-21] MEDS ORDERED: ALBUTEROL SULFATE HFA 90 MCG/PUFF 8 GM INHALER IH PRN (15:30)
[2019-02-21] MEDS ORDERED: ACETAMINOPHEN 325 MG TABLET PO PRN (15:30)
[2019-02-21] MEDS ORDERED: NICOTINE 14 MG/24 HOUR PATCH TD PRN (15:30)
[2019-02-21] MEDS ORDERED: IBUPROFEN 400 MG TABLET PO PRN (15:30)
[2019-02-21] MEDS ORDERED: MAG HYDROX/AL HYDROX/SIMETH ES 30 ML SUSPENSION UDCUP PO PRN (15:30)
[2019-02-21] MEDS ORDERED: CloNIDine HCL 0.1 MG TABLET PO PRN (15:30)
[2019-02-22] VITALS (9 sets, daily range): BP systolic 105–131; BP diastolic 71–88
[2019-02-22] MEDS: SERTRALINE HCL 50 MG TABLET PO SCH (20:14)
[2019-02-23 04:22] VITALS: BP 103/78
[2019-02-23 09:33] VITALS: BP 117/68
[2019-02-23 09:35] VITALS: BP 117/68
[2019-02-23 17:22] VITALS: BP 117/79
[2019-02-23 18:09] VITALS: BP 117/79
[2019-02-23] MEDS: SERTRALINE HCL 50 MG TABLET PO SCH (20:27)
[2019-02-23] MEDS: ZOLPIDEM TARTRATE 10 MG TABLET PO PRN (20:27)
[2019-02-24 01:00] VITALS: BP 95/65
[2019-02-24 04:04] VITALS: BP 95/65
[2019-02-24 08:29] VITALS: BP 126/85
[2019-02-24 08:39] VITALS: BP 126/74
[2019-02-24 16:00] VITALS: BP 131/86
[2019-02-24] MEDS: SERTRALINE HCL 50 MG TABLET PO SCH (20:28)
[2019-02-24 21:57] VITALS: BP 131/86
[2019-02-24] MEDS: ZOLPIDEM TARTRATE 10 MG TABLET PO PRN (22:40)
[2019-02-25 03:09] VITALS: BP 106/64
[2019-02-25 03:15] VITALS: BP 106/64
[2019-02-25 08:53] VITALS: BP 104/70
[2019-02-25 08:55] VITALS: BP 104/70
[2019-02-25] MEDS ORDERED: SERT50TA12 PO (10:58)
== END 2019-02-25 14:15 | disposition home or self-care (01) | DRG 885 ==
LOC: EMS 04:39 → 3EI 13:52
DX: F25.1 Schizoaffective disorder, depressive type (principal); I10 Essential (primary) hypertension; F19.10 Other psychoactive substance abuse, uncomplicated; F10.20 Alcohol dependence, uncomplicated; E83.51 Hypocalcemia; Z59.0 Homelessness; Z86.73 Personal history of transient ischemic attack (TIA), and cerebral infarction without residual deficits; Z91.14 Patient's other noncompliance with medication regimen; Z91.5 Personal history of self-harm; Z79.899 Other long term (current) drug therapy
CPT/HCPCS: G0480

== ENCOUNTER 2022-08-08 12:57 | Emergency (ER) | payer OTHER ==
[~2022-08-08] VITALS: Ht 160 cm; Wt 107.6 kg
[~2022-08-08 12:57] MED LIST changes: -FERR-89 PO; -FOLI1 PO; +FURO40 PO; +LACT10SO85 PO; +LIB25 PO; -OLAN10TA3 PO; +PANT-31 PO; +QUET25TA PO; +SERT-158 PO; -SERT100T12 PO; +SPIR50TA27 PO; -THIA100T67 PO; +VALP250C48 PO
[2022-08-08 15:58] VITALS: BP 145/106
== END 2022-08-08 16:01 | disposition left against medical advice (07) ==
LOC: EMS 13:12
DX: R18.8 Other ascites (principal); F10.10 Alcohol abuse, uncomplicated; F31.9 Bipolar disorder, unspecified; I10 Essential (primary) hypertension; F20.9 Schizophrenia, unspecified; K74.60 Unspecified cirrhosis of liver; Z98.890 Other specified postprocedural states
CPT/HCPCS: 99283; Z7502